=== PATIENT | male | born 1980 | race Hispanic/Latino ===

== ENCOUNTER 2017-08-14 06:17 | Inpatient (IN) | payer MEDICARE, MEDICAID ==
[2017-08-14] MEDS ORDERED: Naproxen 550 mg Tab PO STA (07:16)
--- NOTE | 2017-08-14 07:25 | ED PDOC ---
Arrival/HPI - General Chief Complaint: Lower Extremity Problem/Injury Time Seen by Provider: 08/14/17 07:07 Historian: Patient - History of Present Illness Narrative History of Present Illness (Text): 08/14/17 07:24 A 36 year old male presents to the emergency department for evaluation of depression. Patient reports chronic back pain and chroinc right knee pain. Denies any trauma, injury or falls. Patient denies hallucinations, hearing voices or any other complaints at this time. 08/14/17 12:06 Symptom Onset: Sudden Symptom Course: Unchanged Activities at Onset: Rest Context: Home Past Medical History - Provider Review Nursing Documentation Reviewed: Yes - Cardiac Hx Hypertension: Yes - Pulmonary Hx Respiratory Disorders: No - Neurological Hx Neurological Disorder: No - HEENT Hx HEENT Disorder: No - Renal Hx Renal Disorder: No - Endocrine/Metabolic Hx Endocrine Disorders: No - Hematological/Oncological Hx Blood Disorders: No - Integumentary Hx Dermatological Disorder: No - Musculoskeletal/Rheumatological Hx Musculoskeletal Disorders: No - Gastrointestinal Hx Gastrointestinal Disorders: No - Genitourinary/Gynecological Hx Genitourinary Disorders: No - Psychiatric Hx Anxiety: Yes Hx Bipolar Disorder: Yes Hx Depression: Yes Hx Substance Use: No - Surgical History Other/Comment: childhood aorta kinking Family/Social History - Physician Review Nursing Documentation Reviewed: Yes Family/Social History: No Known Family HX Smoking Status: chew tobac Hx Alcohol Use: No Hx Substance Use: No Allergies/Home Meds Allergies/Adverse Reactions: Allergies aripiprazole [From Abilify] Allergy (Verified 08/14/17 11:35) SWELLING haloperidol [From Haldol] Allergy (Verified 08/14/17 11:35) SWELLING Home Medications: Home Meds Medication Instructions Recorded Confirmed Gabapentin [Neurontin] 300 mg PO TID 08/14/17 08/14/17 Review of Systems - Physician Review All systems were reviewed & negative as marked: Yes - Review of Systems ENT: absent: Hearing Changes Musculoskeletal: Back Pain (chronic), Other (chronic right knee pain) Psychiatric: Depression Physical Exam Vital Signs Reviewed: Yes Vital Signs Temp Pulse Resp BP Pulse Ox 08/14/17 10:00 98 F 77 17 121/75 98 08/14/17 06:36 99.1 F 96 H 18 91/74 L 98 Temperature: Afebrile Blood Pressure: Normal Pulse: Regular Respiratory Rate: Normal Appearance: Positive for: Well-Appearing, Non-Toxic, Comfortable Pain Distress: None Mental Status: Positive for: Alert and Oriented X 3 - Systems Exam Head: Present: Atraumatic, Normocephalic Pupils: Present: PERRL Extroacular Muscles: Present: EOMI Conjunctiva: Present: Normal Mouth: Present: Moist Mucous Membranes Neck: Present: Normal Range of Motion Respiratory/Chest: Present: Clear to Auscultation, Good Air Exchange. No: Respiratory Distress, Accessory Muscle Use Cardiovascular: Present: Regular Rate and Rhythm, Normal S1, S2. No: Murmurs Abdomen: Present: Normal Bowel Sounds. No: Tenderness, Distention, Peritoneal Signs Back: Present: Normal Inspection Upper Extremity: Present: Normal Inspection. No: Cyanosis, Edema Lower Extremity: Present: Normal Inspection. No: Edema Neurological: Present: GCS=15, CN II-XII Intact, Speech Normal Skin: Present: Warm, Dry, Normal Color. No: Rashes Psychiatric: Present: Alert, Oriented x 3, Normal Insight, Normal Concentration Medical Decision Making ED Course and Treatment: 08/14/17 07:23 Impression: A 36 year old male with depression. also c/o of chroinc pain- however sleeping in nad. Plan: -- EKG -- chest xray -- labs -- Urinalysis -- Anaprox -- Reassess and disposition Progress Notes: 08/14/17 07:43 EKG: Ordered, reviewed, and independently interpreted the EKG. Rate : 103 BPM Rhythm : sinus tachycardia Interpretation : normal intervals, normal axis Comparison : No previous EKG for comparison. 08/14/17 08:20 Patient is medically cleared. 08/14/17 09:34 Patient will be admitted to psych. 08/14/17 09:50 chest xray- Creator : Julian Collier MD IMPRESSION: No active disease. 08/14/17 12:06 - Lab Interpretations Lab Results: 08/14/17 07:45 08/14/17 07:45 Lab Results 08/14/17 07:45: Alcohol, Quantitative < 10 08/14/17 07:45: Salicylates < 1 L, Acetaminophen < 10.0 L 08/14/17 07:45: Sodium 143, Potassium 4.3, Chloride 102, Carbon Dioxide 28, Anion Gap 17, BUN 16, Creatinine 0.8, Est GFR ( Amer) > 60, Est GFR (Non- Af Amer) > 60, Random Glucose 95, Calcium 9.5, Total Bilirubin 0.3, AST 43, ALT 34, Alkaline Phosphatase 70, Total Protein 7.6, Albumin 4.4, Globulin 3.3, Albumin/Globulin Ratio 1.3 08/14/17 07:45: WBC 9.5, RBC 4.19, Hgb 14.2, Hct 42.3, MCV 101.0, MCH 33.9, MCHC 33.6, RDW 13.2, Plt Count 172, MPV 10.6, Gran % 58.7, Lymph % (Auto) 30.5, [place] % (Auto) 10.6 H, Eos % (Auto) 0.0 L, Baso % (Auto) 0.2, Gran # 5.58, Lymph # (Auto) 2.9, [place] # (Auto) 1.0 H, Eos # (Auto) 0.0, Baso # (Auto) 0.02 08/14/17 07:12: Urine Opiates Screen Negative, Urine Methadone Screen Negative, Ur Barbiturates Screen Negative, Ur Phencyclidine Scrn Negative, Ur Amphetamines Screen Negative, U Benzodiazepines Scrn Negative, U Oth Cocaine Metabols Negative, U Cannabinoids Screen Negative 08/14/17 07:12: Urine Color Yellow, Urine Appearance Clear, Urine pH 6.5, Ur Specific [place] 1.025, Urine Protein Trace H, Urine Glucose (UA) Negative, Urine Ketones Trace H, Urine Blood Negative, Urine Nitrate Negative, Urine Bilirubin Negative, Urine Urobilinogen 0.2, Ur Leukocyte Esterase Negative, Urine RBC 0 - 2, Urine WBC 1 - 3, Ur Epithelial Cells 0 - 2, Amorphous Sediment Few, Urine Bacteria Many, Urine Other Uyeast I have reviewed the lab results: Yes - RAD Interpretation Radiology Orders: 08/14/17 07:12 CHEST PORTABLE [RAD] Stat - EKG Interpretation Interpreted by ED Physician: Yes Type: 12 lead EKG - Medication Orders Current Medication Orders: Discontinued Medications Naproxen (Anaprox Ds) 550 mg PO STAT STA Stop: 08/14/17 07:17 Last Admin: 08/14/17 09:59 Dose: 550 mg - Scribe Statement The provider has reviewed the documentation as recorded by the Lydia Zacarias Provider Scribe Attestation: All medical record entries made by the Scribe were at my direction and personally dictated by me. I have reviewed the chart and agree that the record accurately reflects my personal performance of the history, physical exam, medical decision making, and the department course for this patient. I have also personally directed, reviewed, and agree with the discharge instructions and disposition. Disposition/Present on Arrival - Present on Arrival Any Indicators Present on Arrival: No History of DVT/PE: No History of Uncontrolled Diabetes: No Urinary Catheter: No History of Decub. Ulcer: No History Surgical Site Infection Following: None - Disposition Have Diagnosis and Disposition been Completed?: Yes Diagnosis: Depression Disposition: HOSPITALIZED Disposition Time: 11:00 Condition: STABLE
[2017-08-14 07:53] LABS: BASO # 0.02 K/mm3 (0.0-2.0); BASO % 0.2 % (0.0-3.0); GRAN # 5.58 (1.4-6.5); GRAN % 58.7 % (50.0-68.0); HEMOGLOBIN 14.2 g/dL (14.0-18.0); LYMPH # 2.9 (1.2-3.4); LYMPH % 30.5 % (22.0-35.0); MEAN CORPUSCULAR HEMOGLOBIN 33.9 pg (25.0-35.0); MEAN CORPUSCULAR HGB CONC 33.6 g/dl (31.0-37.0); MEAN PLATELET VOLUME 10.6 fl (7.0-11.0); MONO % 10.6 % (1.0-6.0); RBC 4.19 10^6/uL (3.5-6.1); RED CELL DISTRIBUTION WIDTH 13.2 % (11.5-14.5); WHITE BLOOD COUNT 9.5 10^3/ul (4.5-11.0)
[2017-08-14 08:13] LABS: ACETAMINOPHEN < 10.0 ug/ml (10.0-20.0); SALICYLATE < 1 mg/dL (2.0-20.0)
[2017-08-14 08:15] LABS: ALB/GLOB RATIO 1.3 (1.1-1.8); ALBUMIN 4.4 g/dL (3.0-4.8); ALT/SGPT 34 U/L (7-56); AST/SGOT 43 U/L (17-59); BLOOD UREA NITROGEN 16 mg/dL (7-21); CALCIUM 9.5 mg/dL (8.4-10.5); GFR AFRICAN-AMERICAN > 60; GFR NON-AFRICAN AMERICAN > 60
--- NOTE | 2017-08-14 09:49 | RAD ---
HISTORY: pysch COMPARISON: No prior. FINDINGS: LUNGS: No active pulmonary disease. PLEURA: No significant pleural effusion identified, no pneumothorax apparent. CARDIOVASCULAR: Normal. OSSEOUS STRUCTURES: No significant abnormalities. VISUALIZED UPPER ABDOMEN: Normal. OTHER FINDINGS: None. IMPRESSION: No active disease.
[2017-08-14 10:01] LABS: PH,URINE 6.5 (4.7-8.0); URINE BILIRUBIN NEGATIVE (NEGATIVE); URINE BLOOD NEGATIVE (NEGATIVE); URINE GLUCOSE (UA) NEGATIVE (NEGATIVE); URINE LEUKOCYTE ESTERASE NEGATIVE Leu/uL (NEGATIVE); URINE NITRATE NEGATIVE (NEGATIVE); URINE PROTEIN TRACE mg/dL (<30 mg/dL); URINE UROBILINOGEN 0.2 E.U./dL (<1 E.U./dL)
[2017-08-14 10:21] LABS: BARBITURATES, UR NEGATIVE (NEGATIVE); BENZODIAZEPINES, UR NEGATIVE (NEGATIVE); OPIATES, UR NEGATIVE (NEGATIVE); PHENCYCLIDINE, UR NEGATIVE (NEGATIVE)
[2017-08-14 10:32] LABS: URINE APPEARANCE CLEAR (CLEAR); URINE COLOR YELLOW (YELLOW)
[2017-08-14 10:43] LABS: URINE BACTERIA MANY (NEG); URINE EPITHELIAL CELLS 0 - 2 /hpf (0-5); URINE RBC 0 - 2 /hpf (0-2)
[2017-08-14 10:44] LABS: URINE AMORPHOUS SEDIMENT FEW
[2017-08-14 12:21] VITALS: O2SAT 99
--- NOTE | 2017-08-14 19:14 | PCM.BM ---
<Kelley Cartwright - Last Filed: 08/14/17 19:10> Treatment Plan Problems - Problems identified on initial assessmt MEDICATION NONADHERENCE Date Initiated: 08/14/17 Time Initiated: 19:11 Assessment reference: NA Status: Active SOCIAL ISOLATION Date Initiated: 08/14/17 Time Initiated: 19:12 Assessment reference: NA Status: Active ALTERED SLEEP PATTERN Date Initiated: 08/14/17 Time Initiated: 19:13 Assessment reference: NA Status: Active INEFFECTIVE COPING Date Initiated: 08/14/17 Time Initiated: 19:15 Assessment reference: NA Status: Active SELF CARE DEFICIT Date Initiated: 08/14/17 Time Initiated: 19:15 Assessment reference: NA Status: Active Treatment assets and liabiliti Patient Assests: adapts well, cooperative, ADL independent, negotiates basic needs Patient Liabilities: live alone, poor support system, relationship conflicts - Milieu Protocol Maintain good personal hygiene: every shift Encourage regular showers, every shift Remind patient to perform daily oral care, every shift Assist patient to perform ADL's Conduct patient checks and document Observation sheet: Q15 minutes Maintain personal safety: every shift Educate patient to report safety concerns to staff, every shift Monitor environment for contraband/sharps Medication safety: Monitor for expected outcome, potential side effects: every shift, Assess barriers to learning: every shift, Assess readiness for medication education: every shift Family Contact - Goals for Treatment Patient goals for treatment: TO GET BACK ON MEDICATION AND FIND A PLACE TO LIVE. Discharge/Continuing Care - Education Needs Education Needs: Patient Medication, Patient Diagnosis/Disease Process, Patient Coping Skills, Patient Placement options, Patient Community resources, Patient Personal Hygiene/Grooming - Discharge Discharge Criteria: Tolerates medication w/o severe side effects, Free of Suicidal thoughts, Free of Homicidal thoughts, Free of agitation, Normal sleep pattern, Ability to care for self <Ludivina Talavera - Last Filed: 08/15/17 12:40> - Diagnosis (1) Depression Status: Acute Interventions: Psychoeducation Psychopharmacology/adjustment of medications as needed/ monitoring possible side effects Evaluate pt on daily basis Compliance with medications and follow up appointments Suicide and homicide risk assessment and prevention Relapse prevention Reduction of symptoms Improve functional status Family involvement As outpatient: cognitive behavioral therapy 08/15/17 12:40 <Maryanne Castaneda - Last Filed: 08/16/17 08:37> Family Contact Family involvement: Famliy/SO not involved - Goals for Treatment Patient goals for treatment: "To find a place to live."
[2017-08-14] MEDS: Divalproex 500 mg DR(BID formulation) PO SCH (21:12)
--- NOTE | 2017-08-14 21:27 | CON ---
HISTORY OF PRESENT ILLNESS: The patient is a 36-year-old male with a reported history of bipolar spectrum disorder as well as anxiety spectrum disorder. The patient has multiple incarcerations in the past. The patient also has state hospitalization into [facility] more than 5 years ago. The patient is currently on probation for sexual assault at the [facility]. The patient currently on probation for 15 years. The patient has history of depression. The patient came to the emergency room complaining of worsening of depression, noncompliance with the medication during the interview. The patient reported that he has chronic back pain and knee pain. Psych consult was called for evaluation of depressive symptoms, med management, and possible admission to the psychiatric inpatient unit. The patient was seen and examined. The patient presented to have poor personal hygiene, multiple tattoos on the upper extremities. The patient reported that he was noncompliant with medications for at least 2 weeks. The patient reported that he was feeling depressed and hopeless. The patient reported that he was feeling more stressed out about his living condition and he is homeless at present moment. The patient reported that he does not hear voices or seeing things, reported transient thoughts of killing himself, no clear plan. Denied intent. He reported that his anxiety is out of control now. He said that he has panic attacks and generalized anxiety disorder as well as PTSD from physical and emotional trauma. The patient denied using any alcohol. Denied substance abuse, but reported smoking cigarettes about a pack a day, counseling provided. PAST PSYCHIATRIC HISTORY: The patient reported that he was hospitalized multiple times. The patient reported 4 suicidal attempts. First one was at the age of 17 after his mother . The patient overdosed on medication. Two other suicidal attempts by slitting by his wrist. The patient has very superficial scars on his left upper extremities. A year ago, patient tried to commit suicide by overdosing on medications. The patient was in ICU, as per patient report for approximately 1 week and the patient reported last suicidal attempt was . The patient reported that he has poor social support. He has one aunt, who is there for him, but she cannot help him that much. Medications reviewed, labs reviewed. From the previous history, the patient reports to be on Depakote as well as Neurontin and Seroquel. The patient reported that he has no adverse reaction to those medications, BUT HE HAS ALLERGIC REACTION TO ARIPIPRAZOLE WELL WELL HALOPERIDOL. VITAL SIGNS: Reviewed. Temperature 98, pulse is 77, blood pressure 121/75, respirations 17, oxygen saturation is 98. MEDICATIONS: Reviewed. The patient is for pain. LABORATORY DATA: Reviewed, seems to be within normal limits. Toxicology negative for any substances. MENTAL STATUS EXAMINATION: The patient presented to be alert, oriented, pleasant, intermittent eye contact. Speech was minimal, underproductive. Thought process seems to be concrete. Thought content, the patient denied visual, auditory, tactile hallucination. Reported to feel hopeless and depressed, transient wish to be and suicidal ideation but no intent or plan. Insight and judgment seems to be limited. Impulses are well controlled. IMPRESSION: As per history, the patient has bipolar spectrum disorder. The patient also has history of anxiety spectrum disorder, rule out antisocial personality disorder. PLAN: The patient wants to be stabilized on the medications, wants to be resumed on medications. The patient wants to have outpatient provider in order to continue taking medications. The patient meets the criteria for voluntary admission. The patient signed consent. The patient does not have any major medical issues. The patient was educated about risks, benefits and alternatives of all for the medications, explained about unit rules and regulations. The patient is willing to participate. The patient will be seen by high school social science teacher in regards of referrals for boarding homes. The patient has income and was willing to accept referrals to boarding home. Meanwhile, we will give medications for more stabilization and depression. The patient signed consent and will be transferred to psych unit whenever bed is available. Thank you very much for letting me participate in care of your patient. Malathi Galloway MD SYDNI
--- NOTE | 2017-08-14 21:29 | CARD ---
APPROVED REPORT EKG Measurement Heart [id number] <Conclusion> Sinus tachycardia Possible Left atrial enlargement Borderline ECG
[2017-08-15] MEDS ORDERED: Alum-Mag Hydrox-Simethicone Susp (30 mL) PO PRN (04:18)
[2017-08-15] MEDS ORDERED: Magnesium Hydroxide Susp 30 ml UD PO PRN (04:18)
[2017-08-15 08:42] LABS: GLUCOSE,FASTING 93 mg/dL (65-110); HDL CHOLESTEROL 44 mg/dL (29-60)
[2017-08-15 08:53] LABS: LDL CHOLESTEROL 105 mg/dL (0-129)
[2017-08-15] MEDS: Divalproex 500 mg DR(BID formulation) PO SCH ×2 (09:27→21:23)
--- NOTE | 2017-08-15 13:35 | CP.PCM.CON ---
History of Present Illness - History of Present Illness History of Present Illness: This is a 36 year old male who is admitted to the behavioral care unit at [facility] for suicidal ideation and depression. I have been asked to see the patient for medical consultation. Patient says that he has history of hypertension and coronary artery bypass surgery, as well as hernia surgery. He is currently homeless and has not been taking any medicine at home. Past Patient History - Past Social History Smoking Status: chew tobac Home Situation {Lives}: Homeless - CARDIAC Hx Hypertension: Yes - PULMONARY Hx Respiratory Disorders: No - NEUROLOGICAL Hx Neurological Disorder: No - HEENT Hx HEENT Problems: No - RENAL Hx Chronic Kidney Disease: No - ENDOCRINE/METABOLIC Hx Endocrine Disorders: No - HEMATOLOGICAL/ONCOLOGICAL Hx Blood Disorders: No - INTEGUMENTARY Hx Dermatological Problems: No - MUSCULOSKELETAL/RHEUMATOLOGICAL Hx Musculoskeletal Disorders: No - GASTROINTESTINAL Hx Gastrointestinal Disorders: No - GENITOURINARY/GYNECOLOGICAL Hx Genitourinary Disorders: No - PSYCHIATRIC Hx Bipolar Disorder: Yes Hx Depression: Yes Hx Schizophrenia: Yes Hx Substance Use: No - SURGICAL HISTORY Hx Surgeries: Yes Hx Herniorrhaphy: Yes Other/Comment: childhood aorta kinking - ANESTHESIA Hx Anesthesia: Yes Hx Anesthesia Reactions: No Meds Allergies/Adverse Reactions: Allergies Allergy/AdvReac Type Severity Reaction Status Date / Time aripiprazole [From Abilify] Allergy SWELLING Verified 08/14/17 11:35 haloperidol [From Haldol] Allergy SWELLING Verified 08/14/17 11:35 - Medications Medications: Current Medications Acetaminophen (Tylenol 325mg Tab) 650 mg PO Q6H PRN PRN Reason: Pain, moderate (4-7) Al Hydrox/Mg Hydrox/Simethicone (Maalox Plus 30 Ml) 30 ml PO DAILY PRN PRN Reason: Upset Stomach Divalproex Sodium (Depakote Dr(*Bid*)) 500 mg PO [facility] Last Admin: 08/15/17 09:27 Dose: 500 mg Gabapentin (Neurontin) 300 mg PO TID GENI PRN Reason: Protocol Last Admin: 08/15/17 09:27 Dose: 300 mg Ibuprofen (Motrin Tab) 800 mg PO Q8H PRN PRN Reason: Pain, moderate (4-7) Lorazepam (Ativan) 2 mg IM Q6H PRN; Protocol PRN Reason: Anxiety Lorazepam (Ativan) 2 mg PO Q6 PRN; Protocol PRN Reason: Agitation Magnesium Hydroxide (Milk Of Magnesia) 30 ml PO DAILY PRN PRN Reason: Constipation Quetiapine Fumarate (Seroquel) 100 mg PO HS GENI PRN Reason: Protocol Last Admin: 08/14/17 21:13 Dose: 100 mg Trazodone HCl (Desyrel) 50 mg PO HS PRN PRN Reason: Insomnia Last Admin: 08/14/17 21:12 Dose: 50 mg Ziprasidone (Geodon Cap) 20 mg PO Q6 PRN; Protocol PRN Reason: Agitation Ziprasidone (Geodon Inj) 20 mg IM Q6 PRN; Protocol PRN Reason: Agitation Physical Exam - Constitutional Appears: No Acute Distress - Head Exam Head Exam: ATRAUMATIC, NORMOCEPHALIC - Respiratory Exam Respiratory Exam: Clear to Auscultation Bilateral, NORMAL BREATHING PATTERN - Cardiovascular Exam Cardiovascular Exam: +S1, +S2 Results - Vital Signs Recent Vital Signs: Last Vital Signs Temp 98.1 F 08/15/17 07:17 Pulse 76 08/15/17 07:17 Resp 20 08/15/17 07:17 BP 105/62 08/15/17 07:17 Pulse Ox 99 08/14/17 11:30 - Labs Result Diagrams: 08/14/17 07:45 08/14/17 07:45 Labs: Laboratory Results - last 24 hr 08/15/17 08:00 Fasting Glucose 93 Triglycerides 82 Cholesterol 169 LDL Cholesterol Direct 105 HDL Cholesterol 44 Assessment & Plan - Assessment and Plan (Free Text) Assessment: Hypertension H/O CABG? Bipolar disorder Depression Plan: Patient reports history of hypertension and bypass surgery. Blood pressure is in normal range without medications. We will monitor blood pressure and order antihypertensive if needed.
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
[2017-08-16] MEDS: Divalproex 500 mg DR(BID formulation) PO SCH ×2 (09:44→21:24)
--- NOTE | 2017-08-16 13:53 | PCM.PYCHPN ---
Psychiatric Progress Note - Psychiatric Progress Note Patient seen today, length of contact: 30 Patient Chief Complaint: " I am here because I am homeless and I am depressed" Problems Identified/Issues Discussed: Patient is a 36 year old single white male who presented at [facility] with complaints of suicidal ideation. Patient became homeless one week ago after being "kicked out" of an illegal rooming house and having "no place to go". There appears to be a secondary gain to this hospitalization. Patient seen at bedside, encouraged to get up and go to group. Awaiting commercial sales representative from boarding home for interview. Indicates that he is feeling better, less irritable, and denies any side effects from the medication. AIMS exam is negative. Patient feels he is ready for discharge. Is looking forward to having his own place to live. Has been cooperative with unit routines and socializes appropriately with peers. Medical Problems: Patient has a history of open heart surgery and HTN, has not had any medical follow up. Diagnostic Results: Laboratory Tests 08/14/17 08/14/17 08/14/17 07:12 07:12 07:45 WBC 9.5 RBC 4.19 Hgb 14.2 Hct 42.3 MCV 101.0 MCH 33.9 MCHC 33.6 RDW 13.2 Plt Count 172 MPV 10.6 Gran % 58.7 Lymph % (Auto) 30.5 [place] % (Auto) 10.6 H Eos % (Auto) 0.0 L Baso % (Auto) 0.2 Gran # 5.58 Lymph # (Auto) 2.9 [place] # (Auto) 1.0 H Eos # (Auto) 0.0 Baso # (Auto) 0.02 Sodium Potassium Chloride Carbon Dioxide Anion Gap BUN Creatinine Est GFR ( Amer) Est GFR (Non-Af Amer) Random Glucose Fasting Glucose Calcium Total Bilirubin AST ALT Alkaline Phosphatase Total Protein Albumin Globulin Albumin/Globulin Ratio Triglycerides Cholesterol LDL Cholesterol Direct HDL Cholesterol Urine Color Yellow Urine Appearance Clear Urine pH 6.5 Ur Specific [place] 1.025 Urine Protein Trace H Urine Glucose (UA) Negative Urine Ketones Trace H Urine Blood Negative Urine Nitrate Negative Urine Bilirubin Negative Urine Urobilinogen 0.2 Ur Leukocyte Esterase Negative Urine RBC 0 - 2 Urine WBC 1 - 3 Ur Epithelial Cells 0 - 2 Amorphous Sediment Few Urine Bacteria Many Urine Other Uyeast Salicylates Urine Opiates Screen Negative Urine Methadone Screen Negative Acetaminophen Ur Barbiturates Screen Negative Ur Phencyclidine Scrn Negative Ur Amphetamines Screen Negative U Benzodiazepines Scrn Negative U Oth Cocaine Metabols Negative U Cannabinoids Screen Negative Alcohol, Quantitative RPR 08/14/17 08/14/17 08/14/17 07:45 07:45 07:45 WBC RBC Hgb Hct MCV MCH MCHC RDW Plt Count MPV Gran % Lymph % (Auto) [place] % (Auto) Eos % (Auto) Baso % (Auto) Gran # Lymph # (Auto) [place] # (Auto) Eos # (Auto) Baso # (Auto) Sodium 143 Potassium 4.3 Chloride 102 Carbon Dioxide 28 Anion Gap 17 BUN 16 Creatinine 0.8 Est GFR ( Amer) > 60 Est GFR (Non-Af Amer) > 60 Random Glucose 95 Fasting Glucose Calcium 9.5 Total Bilirubin 0.3 AST 43 ALT 34 Alkaline Phosphatase 70 Total Protein 7.6 Albumin 4.4 Globulin 3.3 Albumin/Globulin Ratio 1.3 Triglycerides Cholesterol LDL Cholesterol Direct HDL Cholesterol Urine Color Urine Appearance Urine pH Ur Specific [place] Urine Protein Urine Glucose (UA) Urine Ketones Urine Blood Urine Nitrate Urine Bilirubin Urine Urobilinogen Ur Leukocyte Esterase Urine RBC Urine WBC Ur Epithelial Cells Amorphous Sediment Urine Bacteria Urine Other Salicylates < 1 L Urine Opiates Screen Urine Methadone Screen Acetaminophen < 10.0 L Ur Barbiturates Screen Ur Phencyclidine Scrn Ur Amphetamines Screen U Benzodiazepines Scrn U Oth Cocaine Metabols U Cannabinoids Screen Alcohol, Quantitative < 10 RPR 08/15/17 08/15/17 08:00 08:00 WBC RBC Hgb Hct MCV MCH MCHC RDW Plt Count MPV Gran % Lymph % (Auto) [place] % (Auto) Eos % (Auto) Baso % (Auto) Gran # Lymph # (Auto) [place] # (Auto) Eos # (Auto) Baso # (Auto) Sodium Potassium Chloride Carbon Dioxide Anion Gap BUN Creatinine Est GFR ( Amer) Est GFR (Non-Af Amer) Random Glucose Fasting Glucose 93 Calcium Total Bilirubin AST ALT Alkaline Phosphatase Total Protein Albumin Globulin Albumin/Globulin Ratio Triglycerides 82 Cholesterol 169 LDL Cholesterol Direct 105 HDL Cholesterol 44 Urine Color Urine Appearance Urine pH Ur Specific [place] Urine Protein Urine Glucose (UA) Urine Ketones Urine Blood Urine Nitrate Urine Bilirubin Urine Urobilinogen Ur Leukocyte Esterase Urine RBC Urine WBC Ur Epithelial Cells Amorphous Sediment Urine Bacteria Urine Other Salicylates Urine Opiates Screen Urine Methadone Screen Acetaminophen Ur Barbiturates Screen Ur Phencyclidine Scrn Ur Amphetamines Screen U Benzodiazepines Scrn U Oth Cocaine Metabols U Cannabinoids Screen Alcohol, Quantitative RPR Nonreactive Temp Pulse Resp BP Pulse Ox 97.7 F 71 20 121/77 99 08/16/17 07:17 08/16/17 07:17 08/16/17 07:17 08/16/17 07:17 08/14/17 11:30 Medication Change: No Medical Record Reviewed: Yes Consults ordered or reviewed: Medical consult reviewed, thank you Mental Status Examination - Cognitive Function Orientation: Person, Place, Situation - Mood Mood: Neutral - Affect Affect: Blunted - Formal Thought Process Formal Thought Process: No Impairment - Homicidal Ideation Homicidal Ideation: No Goal/Treatment Plan - Goal/Treatment Plan Progress Toward Problem(s) and Goals/Treatment Plan: Treatment plan: Milieu/structure/supportive therapy Medical consult appreciated, see medical team note for more detailed info consultation for discharge plan and social issues Med management Family involvement Follow up on labs Will monitor closely evaluation for d/c planning Pt was educated about risk/benefits and alternatives of medications, coping strategies (safety plan, suicide prevention), relapse prevention, importance of follow up with psychiatrist and therapist, stay away from drugs/alcohol/smoking Medication Rationale: Depakote DR 500mg 1 po BID for mood stabilization and irritability Seroquel 50mg 1 po BID and Seroquel 100mg 2 po at HS Gabapentin 300mg 1 po TID for anxiety Desyrel 50mg 1 po HS PRN for sleep
--- NOTE | 2017-08-16 19:10 | CP.PCM.PN ---
Subjective - Date & Time of Evaluation Date of Evaluation: 08/16/17 Time of Evaluation: 09:30 - Subjective Subjective: Patient is seen this morning in the behavioral care unit. He complains of pain in his tooth. Objective - Vital Signs/Intake and Output Vital Signs (last 24 hours): Temp Pulse Resp BP Pulse Ox 97.7 F 80 20 117/68 99 08/16/17 07:17 08/16/17 15:46 08/16/17 07:17 08/16/17 15:46 08/14/17 11:30 - Medications Medications: Current Medications Acetaminophen (Tylenol 325mg Tab) 650 mg PO Q6H PRN PRN Reason: Pain, moderate (4-7) Al Hydrox/Mg Hydrox/Simethicone (Maalox Plus 30 Ml) 30 ml PO DAILY PRN PRN Reason: Upset Stomach Divalproex Sodium (Depakote Dr(*Bid*)) 500 mg PO [facility] Last Admin: 08/16/17 09:44 Dose: 500 mg Gabapentin (Neurontin) 300 mg PO TID GENI PRN Reason: Protocol Last Admin: 08/16/17 17:37 Dose: 300 mg Ibuprofen (Motrin Tab) 800 mg PO Q8H PRN PRN Reason: Pain, moderate (4-7) Last Admin: 08/16/17 10:38 Dose: 800 mg Lorazepam (Ativan) 2 mg IM Q6H PRN; Protocol PRN Reason: Anxiety Lorazepam (Ativan) 2 mg PO Q6 PRN; Protocol PRN Reason: Agitation Magnesium Hydroxide (Milk Of Magnesia) 30 ml PO DAILY PRN PRN Reason: Constipation Nicotine (Nicoderm Cq) 1 patch TD DAILY [facility] Last Admin: 08/16/17 09:43 Dose: 1 patch Quetiapine Fumarate (Seroquel) 200 mg PO HS GENI PRN Reason: Protocol Last Admin: 08/15/17 21:23 Dose: 200 mg Quetiapine Fumarate (Seroquel) 50 mg PO BID [facility] PRN Reason: Protocol Last Admin: 08/16/17 17:37 Dose: 50 mg Trazodone HCl (Desyrel) 50 mg PO HS PRN PRN Reason: Insomnia Last Admin: 08/15/17 21:23 Dose: 50 mg Ziprasidone (Geodon Cap) 20 mg PO Q6 PRN; Protocol PRN Reason: Agitation Ziprasidone (Geodon Inj) 20 mg IM Q6 PRN; Protocol PRN Reason: Agitation - Constitutional Appears: No Acute Distress - Head Exam Head Exam: ATRAUMATIC, NORMOCEPHALIC - Neurological Exam Neurological Exam: Alert, Awake, Oriented x3 Assessment and Plan - Assessment and Plan (Free Text) Assessment: Hypertension Depression Bipolar disorder Plan: Patient says that he has history of high blood pressure. Blood pressure is currently controlled off medication. Will continue to monitor.
[2017-08-17 06:49] VITALS: BP 102/71; PULSE 63; RESP 18; TEMP 97.5
[2017-08-17] MEDS: Divalproex 500 mg DR(BID formulation) PO SCH (09:05)
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
--- NOTE | 2017-08-17 16:41 | PN ---
DATE: LOCATION: This patient is in [facility], Behavioral Care Unit. SUBJECTIVE: The patient was admitted with back pain, leg pain. The patient has history of bipolar disorder, depression, and aggressive behavior. The patient has past history of hypertension, also has history of cardiac surgery. He has a scar on the left side, scapular area of the chest. The patient states that he probably had some surgery when he was a kid and most likely, it is surgery for coarctation of the aorta. There was a mistake on previous dictation alluding to coronary artery condition, but that is a mistake. The patient is seen this morning. PHYSICAL EXAMINATION VITAL SIGNS: His pulse is 63, blood pressure 102/71, and respirations 18. The patient's temperature 97.5. HEENT: The patient's head is normocephalic. He has a facial rash. He states that he gets this and some physician has told him that he had psoriasis. The patient's rash on the face appears to be like seborrhea. . He has shaved his head. NECK: Does not show any lymphadenopathy. The patient's carotid pulses are present. HEART: Normal sinus rhythm. S1 and S2 present. ABDOMEN: Soft. Liver and spleen not palpable. CENTRAL NERVOUS SYSTEM: The patient is conscious, rational, oriented. No focal deficits are noted. The patient also has back pain. He is looking for pain medication, but the patient is being evaluated by the psychiatrist and the Department of Behavioral Care Unit and the patient is discharged to Outpatient Care. His medications consists of Depakote 500 mg, the patient will get that twice a day. The patient is on Seroquel. The patient is also on Neurontin 300 mg 3 times a day. The patient is also nicotine patch. The dose of Seroquel is 200 mg at nighttime. The patient's blood work: Hemoglobin is 14.2, white count is within normal limits. He has 10 percent monocytes. Chemistry: The blood sugar is 93. His total cholesterol is 169. The patient's condition is improved. He is ambulating well and he will be given the prescriptions. I had given him a prescription for Lidex to apply on his face temporarily to contract his skin rash, but the patient will follow up with his physician when he goes home. Albin Jacome MD [facility] # [id number]
== END 2017-08-17 15:15 | disposition home or self-care (01) | DRG 885 ==
LOC: ED 06:17 → ERH 10:34 → PSYC 16:16
PROVIDERS: ADMIT Psychiatry & Neurology Psychiatry; ATTEND Psychiatry & Neurology Psychiatry
DX: F32.89 Other specified depressive episodes (principal); R45.851 Suicidal ideations; Z91.14 Patient's other noncompliance with medication regimen; F20.9 Schizophrenia, unspecified; F12.90 Cannabis use, unspecified, uncomplicated; F16.90 Hallucinogen use, unspecified, uncomplicated; F17.210 Nicotine dependence, cigarettes, uncomplicated; F41.0 Panic disorder [episodic paroxysmal anxiety]; F41.1 Generalized anxiety disorder; F43.10 Post-traumatic stress disorder, unspecified; F60.2 Antisocial personality disorder; F81.9 Developmental disorder of scholastic skills, unspecified; G89.29 Other chronic pain; I10 Essential (primary) hypertension; Z59.0 Homelessness; Z65.3 Problems related to other legal circumstances; Z95.1 Presence of aortocoronary bypass graft; Z80.6 Family history of leukemia; L21.9 Seborrheic dermatitis, unspecified; F31.9 Bipolar disorder, unspecified